=== PATIENT | male | born 1930 | race Caucasian/White ===

== ENCOUNTER 2017-03-23 06:44 | Inpatient (IN) ==
[~2017-03-23 06:44] MED LIST: ACETAMINOPHEN 500 MG TABLET PO ONE; FAMOTIDINE PB 20 MG/50 ML BAG IV ONE; LIDOCAINE 1% (10mg/ml) 2mL INJ PF SDV ID ONE; METOCLOPRAMIDE 10mg/2ml INJECTION IVP ONE; ONDANSETRON 4 MG/2 ML INJECTION IVP ONE; TRANEXAMIC ACID 1,000 MG in NS 100 ML IV ONE
[2017-03-23] MEDS ORDERED: TRANEXAMIC ACID 1,000 MG in NS 100 ML IV ONE (07:00)
[2017-03-23 07:03] VITALS: BMI 31.5
--- NOTE | 2017-03-23 07:34 | Anesthesia Preoperative Report ---
Anesthesia Preoperative Record - Date and Time Date: 03/23/17 Preoperative Diagnosis: Rt WADE M16.11 NPO Since Date: 03/22/17 NPO Since Time: 00:00 Allergies/Adverse Reactions: Allergies Allergy/AdvReac Type Severity Reaction Status Date / Time No Known Drug Allergies Allergy Unknown Verified 03/23/17 07:13 - Vital Signs Vital Signs: Temperature 97.7 F 03/23/17 07:02 Pulse Rate 73 03/23/17 07:02 Respiratory Rate 16 03/23/17 07:02 Blood Pressure 143/68 H 03/23/17 07:02 Pulse Oximetry 91 03/23/17 07:02 Height and Weight: Height 1.68 m Weight 88.7 kg Body Mass Index 31.5 - Medications Inpatient Medications: Current Medications Epinephrine HCl 0.25 mg/Bupivacaine HCl 30 ml/Morphine Sulfate 15 mg/ Sodium Chloride 63.25 mls @ 0 mls/hr OPSITE INTRAOP ONE; Per Protocol PRN Reason: Protocol Stop: 03/23/17 08:01 Sodium Chloride (Normal Saline) 1,000 mls @ 50 mls/hr IV .Q20H JAVID Isopropyl Alcohol (Nozin Nasal Swab) 1 each JANIS PREOP ONE Stop: 03/23/17 12:32 Sodium Chloride (Iv Flush) 10 - 80 ml IV PRN PRN PRN Reason: Flushing Home Medications: Home Medications Medication Instructions Recorded Confirmed Type LINAGLIPTIN 5mg [Tradjenta] 1 tab PO DAILY #0 05/06/15 03/23/17 History Lisinopril [Prinivil] 1.25 mg PO DAILY 01/30/17 03/23/17 History Pioglitazone HCl [Pioglitazone HCl] 30 mg PO DAILY 01/30/17 03/23/17 History Tamsulosin [Flomax] 0.4 mg PO HS 01/30/17 03/23/17 History Acetaminophen [Tylenol] 500 mg PO HS 03/15/17 03/23/17 History Aspirin *EC* [Ecotrin] 1 tab PO DAILY 03/15/17 03/23/17 History Calcium Carbonate [Calci-Chew] 500 mg PO PRN PRN 03/15/17 03/23/17 History Cyanocobalamin (Vitamin B-12) 1 tab PO DAILY 03/15/17 03/23/17 History [Vitamin B-12] Finasteride [Proscar] 5 mg PO 1200 03/15/17 03/23/17 History Levothyroxine Tab [Synthroid] 50 mcg PO DAILY 03/15/17 03/23/17 History Pravastatin [Pravachol] 40 mg PO HS 03/15/17 03/23/17 History Ergocalciferol (Vit. D2) [Vitamin 1 cap PO DAILY 03/23/17 03/23/17 History D-2] - Medical History Respiratory: DENIES: Sleep Apnea Cardiovascular: Reports: Coronary Artery Disease, Hypertension, High Cholesterol Gastrointestional: Reports: Gastroesophageal Reflux Disease (H/O), Other (right inguinal hernia-chronic & minimally symptomatic) Neuro/Musculoskeletal: Reports: [email or web address] Renal/Endocrine: Reports: Diabetes Mellitus Type 2, Thyroid Disease - Surgical History HEENT Surgeries: Reports: Eye Surgery (nicole cataract with IOL implants), Tonsillectomy Cardiac Surgeries/Treatments: Reports: Cardiac Catheterization GI Surgery/Treatments: Reports: Hernia Repair (Lt inguinal 2015), Colonoscopy ( hx of polyps) Surgery/Treatment: REPORT: Transurethral Resection ([facility] TURP 2009), Other (cystos) Musculoskeletal Surgery/Tx: Reports: Total Hip Replacement (LT WADE), Total Knee Replacement (RT & LT TKA) - Social History Smoking Status: Never smoker Hx Chewing Tobacco Use: No Second Hand Exposure: No Substance Use Type: does not use Alcohol Intake Frequency: does not drink - Physical Exam Respiratory Exam: Present: lungs clear Cardiovascular Exam: Present: regular rate and rhythm - Airway Assessment Mallampati Score: II TMD: 2 Fingerbreadths Neck Extension: fair Overall Assessment: may be difficult intubation - ASA ASA Score: 3 - Plan Anesthesia: General TIVA, Neuroaxial Regional/Trunk Block: Spinal - Discussion Discussion: Discussed risks/options/alternatives of anesthesia and questions answered. Patient consents. Nursing pain assessment noted. Present for Discussion: family member Attestation Statement: Prior to the delivery of any anesthetic medication, I examined the patient, developed the plan, obtained the patient's consent and discussed the risk and benefits of the procedure with the patient/guardian. - Additional Information Seen by Anesthesia: Yes
[2017-03-23] MEDS: NS 1,000 ML IV SCH ×3 (07:40→11:27)
[2017-03-23] MEDS ORDERED: MIDAZOLAM 2mg/2ml INJECTION ONE (07:44)
[2017-03-23] MEDS ORDERED: FentaNYL 100 MCG/2 ML INJECTION ONE (07:44)
[2017-03-23] MEDS ORDERED: EPINEPHrine PF 0.25 MG, BUPIVACAINE 0.25% PF 30 ML, MORPHINE SULFATE 15 MG in NS 30 ML OPSITE ONE (08:00)
[2017-03-23] MEDS ORDERED: VANCOMYCIN 1,000 MG INJECTION ONE (08:06)
[2017-03-23] MEDS ORDERED: CEFAZOLIN 1 G INJECTION IVP ONE (08:30)
[2017-03-23] MEDS ORDERED: PROPOFOL 500 MG/50 ML VIAL ONE (08:47)
[2017-03-23] MEDS ORDERED: HYDROMORPHONE 2 MG/ML INJECTION IVP PRN (09:04)
[2017-03-23] MEDS ORDERED: ONDANSETRON 4 MG/2 ML INJECTION IVP PRN ×2 (09:04→11:20)
[2017-03-23] MEDS ORDERED: GLYCOPYRROLATE 0.4 MG/2 ML INJECTION ONE (09:15)
[2017-03-23] MEDS ORDERED: EPHEDRINE 50mg/ml INJECTION ONE (09:24)
[2017-03-23] MEDS ORDERED: TRANEXAMIC ACID 1,000 MG in NS 100 ML TOP ONE (09:27)
[2017-03-23] MEDS ORDERED: VANCOMYCIN 1,000 MG INJECTION IAR ONE (09:29)
[2017-03-23] MEDS ORDERED: PHENYLEPHRINE INJ 10 MG/ML VIAL IV ONE (09:42)
[2017-03-23] MEDS ORDERED: BUPIVACAINE 0.25%/EPI 1:200,000 30ml SDV ONE (09:43)
--- NOTE | 2017-03-23 10:11 | Operative Note ---
- Procedure Preoperative Diagnosis: Right hip primary degenerative joint disease Postoperative Diagnosis: Same as preoperative diagnosis. Surgeon: Nathan Pate MD Ethnic Studies Professor: Richi Cardenas Complications: None. Anesthesia: Spinal. Estimated Blood Loss: See Anesthesia Record. Fluids: Please see Anesthesia Record. Description of Procedure: Mr. Elizondo and his right hip were identified and marked in the preoperative holding area. He was brought back to the operating suite and spinal anesthetic was administered. He was then placed in a lateral decubitus position with his right hip up. The right lower extremity was prepped and draped in my normal sterile fashion. Timeout was performed. The Shaka robotic arm was used to assist with the surgery. A pelvic array was placed into the iliac crest through three small incisions. A direct superior approach was utilized. An approximately 12 cm incision was made in the skin and dissection carried down to the muscle fascia which was then split in line with skin incision. A checkpoint was placed in the greater trochanter. The short external rotators were identified and tagged and detached. A capsulotomy was performed and the hip dislocated. A femoral neck osteotomy was performed at the pre-templated level measuring down from the femoral head. The head was removed and acetabulum exposed. Labrum was removed. The acetabulum was then registered with the robot. The robotic arm was then used to ream with a 55 reamer. The robot then was again used to place a 56 Trident cup in 40 of tilt and 25 of anteversion. A liner was then placed. The proximal femur was exposed and prepared with a cookie cutter followed by reaming and broaching to a size 7 which was a touch proud. We trialed with a standard head. This gave him excellent stability and good leg length he was 1 mm longer than the opposite leg. After thorough irrigation a final Accolade 2 size 7 stem with 132 neck was placed. Leg length and offset were checked with the robot and were good. A final standard metal head was placed and the hip reduced. Betadine solution was used to irrigate throughout the case. It was followed by normal saline irrigation. 1 g of TXA was allowed to sit in the wound for 5 minutes and then suctioned out. Joint cocktail was injected throughout soft tissue. The capsulotomy was repaired with Ethibond. Short external rotators were also repaired with Ethibond. 1 g of vancomycin powder was placed into the wound. The muscle fascia was then repaired with #1 Vicryl. I then left my medical assistant internal medicine to close the subcutaneous tissue with 2-0 Vicryl followed by running 4-0 Monocryl skin followed by Dermabond and a sterile dressing. The patient with any placed back into supine position and taken to recovery room in the care of anesthesia.
[2017-03-23] MEDS ORDERED: DiphenhydrAMINE 50 MG/ML INJECTION IVP PRN (11:20)
[2017-03-23] MEDS ORDERED: LORazepam 1 MG TABLET PO PRN (11:20)
[2017-03-23] MEDS ORDERED: NOZIN NASAL SWAB NAS ONE ×2 (11:20→12:31)
[2017-03-23] MEDS ORDERED: DiphenhydrAMINE 25 MG CAPSULE PO PRN (11:20)
--- NOTE | 2017-03-23 11:53 | Anesthesia Postoperative Note ---
- Date and Time Date: 03/23/17 Time: :18 - Status Patient Participated in Evaluation: Patient Participated in Person Vital Signs: Temperature 96.1 F L 03/23/17 11:15 Pulse Rate 68 03/23/17 11:30 Respiratory Rate 14 03/23/17 11:15 Blood Pressure 124/67 03/23/17 11:30 Pulse Oximetry 98 03/23/17 11:30 Respiratory Function: Airway Patent, Regular Respirations Cardiovascular Function: Regular Pulse Mental Status: Alert and Oriented Pain Intensity: 0 Hydration: IV Infusing Complications During Recover: None Apparent Post Anesthesia Care Notes: moves lower extremeties - Follow-Up Instructions Instructions: Per Surgeon
[2017-03-23] MEDS ORDERED: SALINE FLUSH 10ml SYRINGE IV PRN (12:31)
[2017-03-23] MEDS: ACETAMINOPHEN 325 MG TABLET PO SCH ×3 (12:52→21:16)
[2017-03-23] MEDS: FINASTERIDE 5 MG TABLET PO SCH (12:52)
[2017-03-23] MEDS: TRAMADOL 50 MG TABLET PO PRN ×3 (13:54→23:03)
[2017-03-23] MEDS: NOZIN NASAL SWAB NAS SCH ×2 (13:54→21:18)
--- NOTE | 2017-03-23 13:58 | XRay Report ---
Indication: postoperative image PROCEDURE: XR pelvis w/ 1 view RT hip: Encounter: Initial Comparison: January 30, 2017 Findings: Postoperative changes of right total hip replacement are seen. There is expected postoperative subcutaneous gas. No evidence of hardware failure or acute fracture. No retained radiopaque surgical instruments or sponges seen. Existing left hip prosthesis is unchanged. Impression: New right total hip prosthesis without evidence of immediate complication. .
[2017-03-23] MEDS: INSULIN ASPART 100unit/ml INJECTION SQ PRN ×2 (15:29→21:16)
[2017-03-23] MEDS: CEFAZOLIN 2 G in NS 100 ML IV SCH (17:05)
[2017-03-23] MEDS ORDERED: TAMSULOSIN 0.4 MG CAPSULE PO SCH (21:00)
[2017-03-23] MEDS ORDERED: SENNOSIDES 8.6 MG TABLET PO SCH (21:00)
[2017-03-23] MEDS ORDERED: PRAVASTATIN 40 MG TABLET PO SCH (21:00)
[2017-03-23] MEDS: ASPIRIN *EC* 81 MG TABLET PO SCH (21:17)
[2017-03-23] MEDS: DOCUSATE SODIUM 100 MG CAPSULE PO SCH (21:18)
[2017-03-24] MEDS: NS 1,000 ML IV SCH (00:59)
[2017-03-24] MEDS: CEFAZOLIN 2 G in NS 100 ML IV SCH (01:01)
[2017-03-24] MEDS: INSULIN ASPART 100unit/ml INJECTION SQ PRN ×2 (06:21→12:41)
[2017-03-24] MEDS: NOZIN NASAL SWAB NAS SCH (06:22)
[2017-03-24] MEDS: TRAMADOL 50 MG TABLET PO PRN (06:23)
[2017-03-24] MEDS ORDERED: LEVOTHYROXINE 50 MCG TABLET PO SCH (06:30)
--- NOTE | 2017-03-24 07:37 | Orthopedic Progress Note ---
Date: Date: 03/24/17 Time: 730 Subjective/Severity of Illness: Mr Elizondo is an 87yo male who had R WAED 03/23/17. He lives in an apartment at [facility] with his . He had a L WADE a year ago and he feels this one is more painful. He was up with PT yesterday for a short distance. Slept well once he got on his side. Denies CP, cough or SOA. He has diabetes and BS have been mostly 160's - 170's. I will resume his oral meds this AM. He was placed on 1 Liter oxygen overnight when his sats dropped into the 80's. In 90's now and he denies feeling SOA or having a cough. Hx of CAD but currently not having any CP. CKD is stable and just slightly improved from baseline with IV fluids. Orthopedic Objective PO Vital signs: Temperature 98.8 F 03/24/17 03:00 Pulse Rate 81 03/24/17 03:00 Respiratory Rate 16 03/24/17 03:00 Blood Pressure 133/62 03/24/17 03:00 Pulse Oximetry 91 03/24/17 05:26 Height and Weight: Height 5 ft 6 in Weight 195 lb 8.8 oz Body Mass Index 31.5 - Constitutional General Appearance: Present: alert, cooperative, no acute distress - Respiratory Exam Present: non-labored - Cardiovascular Exam Present: pedal pulses intact - Extremities Exam Extremities: Present: pulses intact. Absent: calf tenderness - Surgical Site Incision: Mepilex dressing intact, dressing intact, no drainage - Integumentary Exam Present: pink, warm, dry - Neurological Exam Present: no deficits - Psychiatric Exam Present: alert, normal affect - Labs Result Diagrams: 03/24/17 03:50 03/24/17 03:50 Abnormal lab results 03/23/17 03/23/17 03/24/17 Range/Units 07:09 07:09 03:50 RBC 4.19 L (4.50-5.90) M/MM3 Hgb 13.1 L 10.3 L D (13.5-17.5) GM/DL Hct 40.5 L 32.6 L D (41-53) % Plt Count 120 L (130-400) T/MM3 Eos % (Auto) 7.3 H (0-4) % Chloride (98-107) MEQ/L Carbon Dioxide (22-30) MEQ/L BUN 35.0 H (9-20) MG/DL Glucose 172 H (75-110) MG/DL Calculated Osmolality 287 H (261-280) MOSM/KG Calcium (8.4-10.2) MG/DL ALT 18 L (21-72) U/L 03/24/17 Range/Units 03:50 RBC (4.50-5.90) M/MM3 Hgb (13.5-17.5) GM/DL Hct (41-53) % Plt Count (130-400) T/MM3 Eos % (Auto) (0-4) % Chloride 110 H (98-107) MEQ/L Carbon Dioxide 21 L (22-30) MEQ/L BUN 27.0 H (9-20) MG/DL Glucose 163 H (75-110) MG/DL Calculated Osmolality (261-280) MOSM/KG Calcium 7.7 L D (8.4-10.2) MG/DL ALT (21-72) U/L H & H 03/23/17 03/24/17 Range/Units 07:09 03:50 Hgb 13.1 L 10.3 L D (13.5-17.5) GM/DL Hct 40.5 L 32.6 L D (41-53) % Orthopedic Assessment and Plan (1) Primary osteoarthritis of right hip Status: Acute Assessment and Plan: Mr Elizondo is doing well at this time but I will re-evaluate later today to see if he is ready for discharge. CKD is stable. Hx of CAD but currently asymptomatic. Diabetes currently managed with sliding scale. Will resume oral meds this AM. Work with PT / OT on mobility and txfrs. Evaluate for additional discharge needs. CM to assist with discharge needs / plans. Aspirin for 6 weeks and SCDs added for additional DVT coverage. - Anticoagulation Therapy Anticoagulation: ASA 81 mg PO BID x6 weeks Hospital Course Summary Disclaimer: The visit summary below is not to be considered part of the above Progress Note.
[2017-03-24] MEDS ORDERED: LISINOPRIL 2.5 MG TABLET PO SCH (09:00)
[2017-03-24] MEDS ORDERED: POLYETHYL GLYCOL 3350 17gm PACKET PO SCH (09:00)
[2017-03-24] MEDS ORDERED: PIOGLITAZONE 30 MG TABLET PO SCH ×2 (09:00→13:00)
[2017-03-24] MEDS: ACETAMINOPHEN 325 MG TABLET PO SCH ×2 (09:49→12:40)
[2017-03-24] MEDS: ASPIRIN *EC* 81 MG TABLET PO SCH (09:49)
[2017-03-24] MEDS: DOCUSATE SODIUM 100 MG CAPSULE PO SCH (09:49)
[2017-03-24] MEDS ORDERED: SENNOSIDES 8.6 MG TABLET PO PRN (10:25)
[2017-03-24 12:35] VITALS: BP 118/62; PULSE 81; RESP 18; TEMP 96.2; O2SAT 96
[2017-03-24] MEDS: FINASTERIDE 5 MG TABLET PO SCH (12:40)
--- NOTE | 2017-03-24 12:59 | Discharge Summary ---
Orthopedic Discharge Info Date of admission: 03/23/17 06:44 Primary care physician: Amadeo Mullins MD Attending Physician: Alexander Pate MD Consults: 03/23/17 07:04 Consult to Anesthesiology [CONS] Routine Reason For Exam: Preoperative Assessment 03/23/17 11:20 Case Management Consult [CONS] Routine Reason For Exam: Discharge Planning DME-Walker [CONS] Routine Height: 5 ft 6 in Weight: 195 lb 8.8 oz Total Joint Outpatient Therapy [CONS] Routine Comment: Remove dressing in 2 weeks - Discharge Diagnosis (1) Primary osteoarthritis of right hip Status: Acute - Procedures Procedures: Procedures Rt WADE - Laboratory Result Diagrams: 03/24/17 03:50 03/24/17 03:50 Laboratory: Abnormal lab results 03/24/17 03/24/17 Range/Units 03:50 03:50 Hgb 10.3 L D (13.5-17.5) GM/DL Hct 32.6 L D (41-53) % Chloride 110 H (98-107) MEQ/L Carbon Dioxide 21 L (22-30) MEQ/L BUN 27.0 H (9-20) MG/DL Glucose 163 H (75-110) MG/DL Calcium 7.7 L D (8.4-10.2) MG/DL H & H 03/23/17 03/24/17 Range/Units 07:09 03:50 Hgb 13.1 L 10.3 L D (13.5-17.5) GM/DL Hct 40.5 L 32.6 L D (41-53) % Orthopedic Discharge HPI - HPI Comments This patient was admitted for elective surgical tx of end stage degenerative joint disease that failed to respond to conservative treatment. Further details of this is found in the admission H&P. Orthopedic Hospital Course Hospital course: 03/24/17 12:56 After appropriate preoperative clearance and signing of operative consent, the patient was given IV antibiotics, according to orthopedic protocol. The patient was taken to the operating room and underwent elective joint arthroplasty. Following surgery, antibiotics were discontinued less than 24 hours according to joint protocol. Appropriate anticoagulants were initiated and SCDs added for DVT prevention. The dressing was clean, dry, and intact. Pain control was obtained via multimodal approach. Bowel motivation addressed with scheduled and PRN medications. Early mobilization was initiated through PT services. Discharge arrangements made by a collaborative effort between the patient and Case Management. Follow-up is scheduled in 2-3 weeks. Discharge instructions given by orthopedic providers and nursing staff at discharge. Discharge condition was good. Care extended to > 2 midnight stays?: No Discharge Plan - Med Rec/Dispo Referrals/Follow Up: Alexander Pate MD [Physician] - 04/17/17 10:30 am Prescriptions: New Aspirin *EC* [Ecotrin] 81 mg PO BID #84 tab Tramadol [Ultram] 50 - 100 mg PO Q6H PRN #60 tab PRN Reason: Pain Acetaminophen [Tylenol] 650 mg PO QID tablet PEG 3350 17gm PACKET [Miralax] 17 gm PO DAILY packet Continue LINAGLIPTIN 5mg [Tradjenta] 1 tab PO DAILY #0 Lisinopril [Prinivil] 1.25 mg PO DAILY Tamsulosin [Flomax] 0.4 mg PO HS Pioglitazone HCl 30 mg PO DAILY Cyanocobalamin (Vitamin B-12) [Vitamin B-12] 1 tab PO DAILY Finasteride [Proscar] 5 mg PO 1200 Levothyroxine Tab [Synthroid] 50 mcg PO DAILY Calcium Carbonate [Calci-Chew] 500 mg PO PRN PRN PRN Reason: Indigestion Ergocalciferol (Vit. D2) [Vitamin D-2] 1 cap PO DAILY Pravastatin [Pravachol] 40 mg PO HS Discontinued Aspirin *EC* [Ecotrin] 1 tab PO DAILY Acetaminophen [Tylenol] 500 mg PO HS - Disposition [facility] - Dismissal Complete Discharge Instructions are:: Complete
[2017-03-25] MEDS ORDERED: BISACODYL 10 MG SUPPOSITORY RECTALLY SCH (20:00)
== END 2017-03-24 14:28 | disposition home health service (06) | DRG 470 ==
LOC: SRG 06:44
PROVIDERS: ADMIT Orthopaedic Surgery; ATTEND Orthopaedic Surgery